=== PATIENT | female | born 1980 | race African-American/Black ===

== ENCOUNTER 2020-05-13 14:42 | Inpatient (IN) | payer OTHER ==
[2020-05-13] VITALS (7 sets, daily range): BP systolic 108–212; BP diastolic 66–135
[~2020-05-13] VITALS: Ht 165.1 cm; Wt 68.1 kg
[2020-05-13 15:21] LABS: URINE BILIRUBIN NEGATIVE (Negative); URINE BLOOD 1+ (Negative); URINE CLARITY CLEAR; URINE COLOR YELLOW; URINE GLUCOSE-RANDOM* 2+ (Negative); URINE KETONES 2+ (Negative); URINE LEUKOCYTES-REFLEX TRACE (Negative); URINE NITRITE-REFLEX NEGATIVE (Negative); URINE PROTEIN (DIPSTICK) 3+ (Negative); URINE UROBILINOGEN 0.2 E.U./dl (0.2-1.0)
[2020-05-13 15:23] LABS: ABSOLUTE NEUTROPHILS 9.4 thou/uL (1.4-8.2); BASOPHILS 0.5 % (0.0-2.0); EOSINOPHILS 0.1 % (0.0-3.0); HEMATOCRIT 37.4 % (37.0-47.0); HEMOGLOBIN 12.4 gm/dL (12.0-15.0); LYMPHOCYTES 8.4 % (24.0-44.0); MCH 27.5 pg (26.0-34.0); MCHC 33.1 g/dL (28.0-37.0); MONOCYTES 4.2 % (1.0-8.0); POLYS 86.8 % (36.0-66.0); RBC 4.51 mil/uL (4.20-5.00); RDW 15.3 % (10.5-14.5); WBC 10.8 thou/uL (4.0-11.0)
[2020-05-13 15:35] LABS: CALCIUM 10.4 mg/dL (8.5-10.1); CREATININE 10.4 mg/dL (0.6-1.0)
[2020-05-13 15:36] LABS: APTT 23.6 Seconds (24.5-32.8); INR 1.1; PROTIME 11.7 Seconds (9.3-11.4)
[2020-05-13 15:40] LABS: ALBUMIN 4.2 g/dL (3.4-5.0); TOTAL BILIRUBIN 0.7 mg/dL (0.2-1.0); TOTAL PROTEIN 9.3 g/dL (6.4-8.2)
[2020-05-13 16:33] LABS: SQUAMOUS 4-10 Moderate /LPF (0-3)
[2020-05-13 16:34] LABS: CASTS None Seen /LPF (None Seen); URINE RBC 3-10 Few /HPF (0-2); URINE WBC-REFLEX 6-15 Few /HPF (0-5)
[2020-05-13 16:35] LABS: CRYSTALS None Seen /LPF (None Seen)
[2020-05-13 17:12] LABS: BE(vivo) -1.1 mmol/L (-2 to +3); HCO3 19.7 mmol/L (22.0-26.0); PCO2 22.6 mmHg (35.0-45.0); PO2 88.8 mmHg (80.0-100.0); pH 7.558 (7.360-7.450); sO2 97.9 % (92.0-98.0)
--- NOTE | 2020-05-13 18:03 | NUR ---
PER KARU NOT MAINTENENCE FLUIDS FOR THIS PT DUE TO RENAL FAILURE.
[2020-05-13 18:13] LABS: FOLIC ACID 9.7 ng/mL (8.6-58.9)
[2020-05-13 18:28] LABS: PLATELET COUNT 344 thou/uL (150-400)
[2020-05-13 18:49] LABS: MAGNESIUM 1.9 mg/dL (1.8-2.4); PHOSPHORUS 6.5 mg/dL (2.5-4.9)
--- NOTE | 2020-05-13 19:43 | NUR ---
A MIDLINE WAS NOTED BY THE VASCULAR ACCESS NURSE TO BE ORDERED FOR THIS PATIENT. SHE IS NOT A CANIDATE FOR A MIDLINE AND HAS 2 PERIPHERAL IV LINES AT THIS TIME. SPOKE WITH HE NURSE AND NO CENTRAL LINE ACCESS NEEDED AT THIS TIME
[2020-05-13 19:51] LABS: ALBUMIN 3.6 g/dL (3.4-5.0); CALCIUM 9.3 mg/dL (8.5-10.1); CREATININE 10.9 mg/dL (0.6-1.0); MAGNESIUM 1.9 mg/dL (1.8-2.4); PHOSPHORUS 6.6 mg/dL (2.5-4.9); POTASSIUM 3.5 mmol/L (3.5-5.1)
[2020-05-13 23:44] LABS: ALBUMIN 3.2 g/dL (3.4-5.0); CALCIUM 8.6 mg/dL (8.5-10.1); CREATININE 10.8 mg/dL (0.6-1.0); MAGNESIUM 1.9 mg/dL (1.8-2.4); PHOSPHORUS 7.7 mg/dL (2.5-4.9)
[2020-05-14] VITALS (18 sets, daily range): BP systolic 92–164; BP diastolic 49–97
--- NOTE | 2020-05-14 00:02 | NUR ---
PT ARRIVED TO 238 AT 2243. PT WAS ROOM AIR WITH A PROONIX GTT RUNNING (SEE MAR FOR DETAILS). SHE WAS PLACED ON THE MONITOR AND ORIENTED TO HER NEW ROOM. RN TO FOLLOW CARE PLAN AND CONINUE TO RUSTAM.
[2020-05-14 05:51] LABS: ALBUMIN 3.2 g/dL (3.4-5.0); CALCIUM 8.6 mg/dL (8.5-10.1); CREATININE 11.1 mg/dL (0.6-1.0); MAGNESIUM 1.9 mg/dL (1.8-2.4); PHOSPHORUS 7.6 mg/dL (2.5-4.9); POTASSIUM 3.9 mmol/L (3.5-5.1)
--- NOTE | 2020-05-14 06:33 | NUR ---
THIS RN CONTACTED THE PILER AT 2250. THE PTS INSULIN DRIP WAS TURNED OFF AT APPROX. 2000 AFTER HER BG DROPPED TO 53. HER BG ON ARRIVAL TO THE ICU AT 3 WAS 201. PILER SAID TO RESUME THE INSULIN DRIP AT 2 UNITS/HR. AT 0140 I CALLED PILER BECAUSE THE PTS BG HAD DROPPED TO 86. AT THIS TIME SHE ORDERED D5 1/2 NS TO RUN AT 75ML/HR. SEE EMAR FOR DETAILS. AT 0 I CALLED PILER AFTER THE PTS BG DROPPED AGAIN. AT 214 HER BG WAS 69. THE PT DRANK 120 ML APPLE JUICE. I RECHECKED HER BG AND IT WAS 53. AT THIS TIME I GAVE 1/2 AN AMP OF D50W. PILER TOLD ME TO TURN OFF HER INSULIN DRIP AND INCREASE HER D5 1/2NS TO 100ML/HR. SEE EMAR FOR DETAILS.
--- NOTE | 2020-05-14 08:13 | EKG ---
[address] [employer] [place] [address] ELECTROCARDIOGRAM REPORT Name: HARRIS ESCALANTE Room #: 238- ADM IN M.R.#: [id number] Admission: 05/13/20 Attend Phys: Kai Mendieta MD Discharge: Date of : 78 Report #: [id number] [facility] Test Date: 2020-05-13 Test Time: 15:53:18 Pat Name: HARRIS ESCALANTE Department: Room: 238 Gender: F Professor Of Economics: JCHAILINNETTE : 1980 Requested By: Aleksander Eaton Order Number: [id number] MD: Ignacio Woodall Measurements Intervals [place] Rate: 116 P: TX: QRS: 75 QRSD: 78 T: 57 QT: 356 QTc: 495 Interpretive Statements Sinus tachycardia Consider left ventricular hypertrophy Borderline prolonged QT interval No previous ECG available for comparison Electronically Signed On 05-14-2020 8:13:49 CDT by Ignacio Woodall [email or web address] <ELECTRONICALLY SIGNED> By: Ignacio Woodall MD, [facility] 05/14/20 0813 1553 1553 Ignacio Woodall MD, FACC /EPI
[2020-05-14 08:28] LABS: CALCIUM 8.2 mg/dL (8.5-10.1); CREATININE 11.5 mg/dL (0.6-1.0); MAGNESIUM 1.9 mg/dL (1.8-2.4); POTASSIUM 3.9 mmol/L (3.5-5.1)
--- NOTE | 2020-05-14 09:00 | NUR ---
ASSUMMED CARE OF THIS PATIENT FROM LOUIE BERMUDEZ AT 0700. DR LOCKHART IN TO SEE PATIENT. IVF AND INSULIN DRIP DC'D. PATIENT STATES THAT HER BLOOD SUGAR DROPS WHEN SHE IS ON AN INSULIN DRIP. DIALYSIS STAFF HERE TO SET UP FOR DIALYSIS
[2020-05-14] MEDS ORDERED: CARVEDILOL25 MG PO (09:39)
[2020-05-14] MEDS ORDERED: NOVOLOG FL100 UNIT/M SUBQ (09:41)
[2020-05-14] MEDS ORDERED: METOCLOPRAMIDE 55 M1 PO (09:43)
[2020-05-14] MEDS ORDERED: PROTONIX40 M2 PO (09:46)
[2020-05-14] MEDS ORDERED: ATORVASTATIN CA80 MG PO (09:46)
--- NOTE | 2020-05-14 11:47 | NUR ---
chart review. cm visited with pt at bedside, cm cont to wear face mask and shield during visit. she was having dialysis tx. intro to cm and transition of care. she reported " lives home in apartment with her 15 and 12 year old children. 19 year old doesnt live there. 3rd floor about 2 flights of stairs, est 20 steps. independent. kids with grandma while she is here. manage own medication. drives vehicle. no hh, rehab or dme in the past. [place] [facility] [place] [facility] [place] [address]. [place] [facility] [place]. dcp home and resume outpt dialysis.
--- NOTE | 2020-05-14 11:49 | NUR ---
Nutrition: Pt seen due to admitting Dx DKA, N/V however pt ICU rounds, pt not meeting criteria for DKA. Current issues related to renal and gastroparesis. Hemodialysis this am. 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 Pt reports stable weight and N/V only x 2 days. Has not ate yet today due to dialysis. Refusing supplements and has no diet related questions. Noted insulin drip D/C'ed due to low BG. SSI will start. BG 58-238, A1C pending. Will add carb controlled to diet order. Vitamin D 19.1. REC Vitamin D supplement. Place as low risk.
--- NOTE | 2020-05-14 13:00 | NUR ---
DIALYSIS COMPLETED WITH 500 ML REMOVED. SITE INITIALLY STABLE BUT STARTED BLEEDING ONCE SHE BEGAN TO EAT. PRESSURE HELD AND BLEEDING CONTROLLED. WILL CONTINUE TO MONITOR.
--- NOTE | 2020-05-14 19:36 | NUR ---
PATIENT IS POGRESSING TOWARDS OUTCOME GOALS, NO NAUSEA OR EMESIS. GRAZING WITH DIET. PROGRESSED TO MED/SURG STATUS.
[2020-05-15 00:06] LABS: GLYCOHEMOGLOBIN (HGB A1C) 7.3 % (4.8-5.6)
[2020-05-15 04:30] VITALS: BP 130/76
[2020-05-15 05:31] LABS: ABSOLUTE NEUTROPHILS 2.9 thou/uL (1.4-8.2); BASOPHILS 1.1 % (0.0-2.0); EOSINOPHILS 6.8 % (0.0-3.0); HEMATOCRIT 26.9 % (37.0-47.0); LYMPHOCYTES 36.5 % (24.0-44.0); MCH 27.9 pg (26.0-34.0); MCHC 33.3 g/dL (28.0-37.0); MCV 83.9 fL (80.0-100.0); MONOCYTES 7.9 % (1.0-8.0); POLYS 47.7 % (36.0-66.0); RDW 15.2 % (10.5-14.5); WBC 6.2 thou/uL (4.0-11.0)
[2020-05-15 05:33] LABS: HEMOGLOBIN 8.9 gm/dL (12.0-15.0); PLATELET COUNT 234 thou/uL (150-400)
[2020-05-15 05:58] LABS: ALBUMIN 2.8 g/dL (3.4-5.0); MAGNESIUM 1.9 mg/dL (1.8-2.4); POTASSIUM 3.9 mmol/L (3.5-5.1); TOTAL BILIRUBIN 0.6 mg/dL (0.2-1.0); TOTAL PROTEIN 6.6 g/dL (6.4-8.2)
[2020-05-15 09:00] VITALS: BP 117/76
[2020-05-15 09:01] VITALS: BP 130/76
--- NOTE | 2020-05-15 11:56 | NUR ---
discussed during am rounds, dc home today. dc orders to be faxed to [facility] dialysis [place] location. family to transport her home.
== END 2020-05-15 12:43 | disposition home or self-care (01) | DRG 871 ==
LOC: ER 14:42 → ICU 17:56 → EROBS 17:56 → ICU 22:30
PROVIDERS: Emergency Medicine; Nurse Practitioner; ADMIT Hospitalist; ATTEND Hospitalist
PROC: 5A1D70Z Performance of Urinary Filtration, Intermittent, Less than 6 Hours Per Day (ICD-10-PCS; principal; 2020-05-14)
DX: A41.9 Sepsis, unspecified organism (principal); E11.10 Type 2 diabetes mellitus with ketoacidosis without coma; N18.6 End stage renal disease; E87.3 Alkalosis; I12.0 Hypertensive chronic kidney disease with stage 5 chronic kidney disease or end stage renal disease; E11.43 Type 2 diabetes mellitus with diabetic autonomic (poly)neuropathy; K31.84 Gastroparesis; Z20.822 Contact with and (suspected) exposure to COVID-19; E11.22 Type 2 diabetes mellitus with diabetic chronic kidney disease; I16.0 Hypertensive urgency; Z79.899 Other long term (current) drug therapy; Z88.6 Allergy status to analgesic agent
CPT/HCPCS: 10078; 32100